=== PATIENT | male | born 1975 | race Caucasian/White ===

== ENCOUNTER 2019-04-30 02:53 | Emergency (ER) | payer MEDICAID, OTHER ==
[~2019-04-30] VITALS: Ht 175.3 cm; Wt 83.9 kg
[2019-04-30 03:41] VITALS: BP 127/77
== END 2019-04-30 07:50 | disposition left against medical advice (07) ==
LOC: ER 02:53
DX: M79.642 Pain in left hand (principal); M79.641 Pain in right hand; Z53.21 Procedure and treatment not carried out due to patient leaving prior to being seen by health care provider